=== PATIENT | male | born 1985 | race African-American/Black ===

== ENCOUNTER 2018-10-11 14:11 | Emergency (ER) | payer OTHER ==
[2018-10-11 14:39] VITALS: BP 172/96; PULSE 131; TEMP 102.6; BMI 33.9
[2018-10-11] MEDS ORDERED: ACETAMINOPHEN 500 MG TABLET (FP) PO ONE (14:47)
[2018-10-11] MEDS ORDERED: ACETAMINOPHEN 325 MG TABLET (FP) PO ONE (14:47)
[2018-10-11] MEDS ORDERED: ACETAMINOPHEN 325 MG TABLET (FP) ONE (14:51)
--- NOTE | 2018-10-11 14:54 | PDOC ---
Rapid Medical Evaluation Chief Complaint: Cold Symptoms Time Seen by Provider: 10/11/18 14:46 Medical Evaluation: Allergies Allergy/AdvReac Type Severity Reaction Status Date / Time No Known Allergies Allergy Verified 10/11/18 14:29 Vital Signs Temp Pulse Resp BP Pulse Ox 102.6 F H 131 H 18 172/96 H 100 10/11/18 14:30 10/11/18 14:30 10/11/18 14:30 10/11/18 14:30 10/11/18 14:30 10/11/18 14:53 I have performed a brief in-person evaluation of this patient. The patient presents with a chief complaint of: fever, chills, sore throat and nasal congestion since yesterday Pertinent physical exam findings: A&O x 3. heart RRR. lungs CTAB I have ordered the following: rapid strep, rapid flu. Tylenol 975mg PO The patient will proceed to the ED for further evaluation Discharge Disposition - Diagnosis Pharyngitis Qualifiers: Pharyngitis/tonsillitis etiology: unspecified etiology Qualified Code(s): J02.9 - Acute pharyngitis, unspecified - Discharge Dispostion Condition at time of disposition: Stable - Referrals - Patient Instructions - Post Discharge Activity
--- NOTE | 2018-10-11 14:58 | PDOC ---
History of Present Illness - General Chief Complaint: Cold Symptoms Stated Complaint: Cold Symptoms Time Seen by Provider: 10/11/18 14:46 - History of Present Illness Initial Comments: 10/11/18 14:56 33-year-old male without comorbidities presents for evaluation of fever sore throat and malaise times one day Past History - Past Medical History Allergies/Adverse Reactions: Allergies Allergy/AdvReac Type Severity Reaction Status Date / Time No Known Allergies Allergy Verified 10/11/18 14:29 Home Medications: Ambulatory Orders NK [No Known Home Medication] 10/11/18 COPD: No HTN: Yes - Surgical History Gastric Stapling: No - Immunization History Immunization Up to Date: No - Suicide/Smoking/Psychosocial Hx Smoking History: Former smoker Have you smoked in the past 12 months: No Information on smoking cessation initiated: No Hx Alcohol Use: No Drug/Substance Use Hx: No Review of Systems - Review of Systems Constitutional: Yes: Fever, Malaise HEENTM: Yes: Nose Congestion, Throat Pain Respiratory: Yes: Cough *Physical Exam - Vital Signs Last Vital Signs Temp Pulse Resp BP Pulse Ox 102.6 F H 131 H 18 172/96 H 100 10/11/18 14:30 10/11/18 14:30 10/11/18 14:30 10/11/18 14:30 10/11/18 14:30 - Physical Exam Comments: 10/11/18 14:57 HEAD: NC/AT EYES: Conjuntiva clear Ears: Canals and TM's normal NOSE: No d/c THROAT: Moist mucous membrances, oral pharanx erythemic, uvula midline NECK: Supple without adenopathy CARDIAC: S1 S2 LUNGS: CTA Full and Equal breath sounds ABDOMEN: Soft NT ND MS: Full ROM in all joints without edema NEUROLOGIC: No gross sensory or motor deficits, NVID SKIN: Normal color and temperature no lesions or rashes Moderate Sedation - Procedure Monitoring Vital Signs: Procedure Monitoring Vital Signs Temperature 102.6 F H 10/11/18 14:30 Pulse Rate 131 H 10/11/18 14:30 Respiratory Rate 18 10/11/18 14:30 Blood Pressure 172/96 H 10/11/18 14:30 O2 Sat by Pulse Oximetry (%) 100 10/11/18 14:30 ED Treatment Course - Medications Given in the ED: ED Medications Discontinued Medications Generic Name Dose Route Start Last Admin Trade Name Freq PRN Reason Stop Dose Admin Acetaminophen 1,000 mg 10/11/18 14:47 10/11/18 14:52 Tylenol - PO 10/11/18 14:48 Not Given ONCE ONE Acetaminophen 975 mg 10/11/18 14:47 10/11/18 14:52 Tylenol - PO 10/11/18 14:48 975 mg ONCE ONE Administration *DC/Admit/Observation/Transfer Diagnosis at time of Disposition: Upper respiratory infection Pharyngitis Qualifiers: Pharyngitis/tonsillitis etiology: unspecified etiology Qualified Code(s): J02.9 - Acute pharyngitis, unspecified - Discharge Dispostion Disposition: HOME Condition at time of disposition: Stable Decision to Admit order: No - Referrals Referrals: Sven Luu [Non Staff, Medical] - - Patient Instructions Printed Discharge Instructions: DI for Viral Upper Respiratory Infection -- Adult Additional Instructions: Flu and strep were negative today follow-up with your internal medicine doctor in one to 2 days for further evaluation and treatment options. Return to the emergency room should symptoms worsen or go unresolved. - Post Discharge Activity
== END 2018-10-11 16:25 | disposition home or self-care (01) ==
LOC: JERFT 14:11
DX: J06.9 Acute upper respiratory infection, unspecified (principal); J02.9 Acute pharyngitis, unspecified
CPT/HCPCS: 87070; 87804; 87880; 99281-25

== ENCOUNTER 2019-01-30 23:39 | Observation (INO) | payer OTHER ==
[2019-01-30 23:54] VITALS: BMI 34.8
--- NOTE | 2019-01-31 01:24 | PDOC ---
History of Present Illness - General Chief Complaint: Blood Pressure Problem Stated Complaint: HIGH BLOOD PRESURE Time Seen by Provider: 01/31/19 00:04 History Source: Patient Exam Limitations: No Limitations - History of Present Illness Initial Comments: 33 yo h/o HTN sent by urgent care on [address] in [place] to the ED for elevated BP with dizziness and chest tightness. Patient moved from [place] to [place] 2 years ago and has been getting his BP meds intermittently from urgent care centers due to no PMD and insurance. He's again been off his BP meds for months and today he's feeling dizzy and chest tightness which prompted him to go to the urgent care center. Denies vision change, focal weakness, n/v, abd pain, headache. Past History - Past Medical History Allergies/Adverse Reactions: Allergies Allergy/AdvReac Type Severity Reaction Status Date / Time No Known Allergies Allergy Verified 10/11/18 14:29 Home Medications: Ambulatory Orders Amlodipine Besylate [Norvasc -] 5 mg PO DAILY #30 tablet 01/31/19 Atorvastatin Ca [Lipitor] 20 mg PO HS #30 tablet 01/31/19 Lisinopril [Prinivil] 20 mg PO DAILY #30 tablet 01/31/19 COPD: No HTN: Yes - Surgical History Gastric Stapling: No - Immunization History Immunization Up to Date: No - Suicide/Smoking/Psychosocial Hx Smoking History: Never smoked Have you smoked in the past 12 months: No Information on smoking cessation initiated: No Hx Alcohol Use: No Drug/Substance Use Hx: No Review of Systems - Review of Systems Able to Perform ROS?: Yes Is the patient limited Yoruba proficient: No Constitutional: No: Chills, Fever Respiratory: No: Cough, Shortness of Breath Cardiac (ROS): Yes: Lightheadedness, Other (chest tightness) Neurological: No: Numbness, Paresthesia, Tingling, Tremors, Weakness *Physical Exam - Vital Signs Last Vital Signs Temp Pulse Resp BP Pulse Ox 98.0 F 109 H 19 163/110 H 99 01/31/19 01:15 01/31/19 01:15 01/31/19 01:15 01/31/19 01:15 01/31/19 01:15 - Physical Exam General Appearance: No: Apparent Distress Respiratory/Chest: positive: Lungs Clear, Normal Breath Sounds Cardiovascular: positive: S1, S2, Tachycardia. 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
--- NOTE | 2019-01-31 01:48 | PDOC ---
Attending Attestation - Resident Resident Name: Saad Sheridan (sore throat) - ED Attending Attestation I have performed the following: I have examined & evaluated the patient, The case was reviewed & discussed with the resident, I agree w/resident's findings & plan - HPI HPI: 01/31/19 03:04 33-year-old male sent for evaluation from urgent care with elevated blood pressure dizziness and chest pain. Patient admits to medication noncompliance. - Physicial Exam PE: 01/31/19 03:04 Agree with resident's exam - Medical Decision Making 01/31/19 03:05 33-year-old male with hypertension chest pain and dizziness Chest x-ray shows no acute disease EKG shows a normal sinus rhythm at 91 bpm with an incomplete right bundle branch block, there are no acute ST elevations Rhythm strip shows a sinus rhythm at 85-90 bpm Patient given aspirin nitroglycerin paste and Lopressor 5 mg IV On reevaluation at 3 AM he is chest pain-free Blood pressures are equal bilaterally and there is no extension of pain into his back to suggest aortic dissection He will will be admitted to observation telemetry service for serial enzymes and blood pressure monitoring
[2019-01-31] MEDS ORDERED: NITROGLYCERIN 2% OINTMENT - 1GM PACKET TD ONE ×2 (01:52→02:28)
[2019-01-31] MEDS ORDERED: METOPROLOL TARTRATE 5 MG/5 ML VIAL IVPUSH ONE (01:53)
[2019-01-31] MEDS ORDERED: METOPROLOL TARTRATE 5 MG/5 ML VIAL ONE (02:29)
[2019-01-31] MEDS ORDERED: ASPIRIN 81 MG CHEWABLE TABLETS PO ONE (02:30)
[2019-01-31] MEDS ORDERED: ASPIRIN COATED 81 MG TABLET.EC ONE (02:49)
[2019-01-31 03:26] LABS: BASO % 1.3 % (0-2.0); EOS % 3.4 % (0-4.5); HEMATOCRIT 45.3 % (35.4-49); MCH 20.8 pg (25.7-33.7); MCHC 30.9 g/dl (32.0-35.9); MEAN CELL VOLUME 67.4 fl (80-96); MEAN PLT VOLUME 9.2 fl (7.5-11.1); MONO % 6.6 % (3.8-10.2); NEUT % 56.7 % (42.8-82.8); PLATELET COUNT 251 K/MM3 (134-434); RBC 6.73 M/mm3 (4.00-5.60); RDW 14.2 % (11.9-15.9); WHITE BLOOD COUNT 12.9 K/mm3 (4.0-10.0)
[2019-01-31 03:34] LABS: HEMATOCRIT 46.2 % (35.4-49); HEMOGLOBIN 14.3 GM/dL (11.7-16.9); MCH 20.9 pg (25.7-33.7); MEAN CELL VOLUME 67.4 fl (80-96); MEAN PLT VOLUME 8.7 fl (7.5-11.1); PLATELET COUNT 277 K/MM3 (134-434); RBC 6.86 M/mm3 (4.00-5.60); RDW 14.4 % (11.9-15.9)
[2019-01-31 04:08] LABS: ALBUMIN 4.2 g/dl (3.4-5.0); ALK PHOS 128 U/L (45-117); ANION GAP 3 MMOL/L (8-16); BILIRUBIN,TOTAL 0.2 mg/dL (0.2-1); BLOOD UREA NITROGEN 20 mg/dL (7-18); CALCIUM 9.4 mg/dL (8.5-10.1); CHLORIDE 105 mmol/L (98-107); CO2 30 mmol/L (21-32); GLUCOSE,RANDOM 107 mg/dL (74-106); POTASSIUM 4.7 mmol/L (3.5-5.1); SGOT/AST 33 U/L (15-37); SGPT/ALT 61 U/L (13-61); SODIUM 139 mmol/L (136-145); TOT PROT 8.1 g/dl (6.4-8.2)
--- NOTE | 2019-01-31 04:34 | PN ---
Teaching Attending Note Name of Resident: Agus Arias ATTENDING PHYSICIAN STATEMENT I saw and evaluated the patient. I reviewed the resident's note and discussed the case with the resident. I agree with the resident's findings and plan as documented. SUBJECTIVE: Patient is a 33 year old man with PMH of HTN diagnosed 10 years ago, sent by Urgent Care on [facility] in [place] to the ER for elevated BP with dizziness and chest tightness. Chest tightness is intermittent, retrosternal/ epigastric, nonradiating, not associated with any other symptoms and he cannot identify any relieving or aggravating factors. Patient moved from [place] to [place] 2 years ago and has been getting his BP meds intermittently from urgent care centers due to no PMD and no health insurance. He's again been off his BP meds for months and today he's feeling dizzy and chest tightness which prompted him to go to the urgent care center. Denies vision change, fever, chills, focal weakness, nausea, vomiting, diaphoresis, SOB, dysuria, OSPINA or change in bowel habit. His pain has stopped since being in the ER, but he now has a frontal headache. He did not get workup for secondary hypertension 10 years ago. has gained weight recently because since relocating from [place] he has not had time to go to the GYM. 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 No family history of premature CAD. OBJECTIVE: Alert Vital Signs Period Temp Pulse Resp BP Sys/Holly Pulse Ox Last 24 Hr 98 F-98.0 F 88-109 16-20 141-196/101-120 98-100 HEENT: No Jaundice, eye redness or discharge, PERRLA, EOMI. No papilledema. Normocephalic, atraumatic. External ears are normal and hearing is grossly intact. No nasal discharge. Neck: Supple, nontender. No palpable adenopathy or thyromegaly. No JVD Chest: Good effort. Clear to auscultation and percussion. Heart: Regular. No S3, rub or murmur Abdomen: Not distended, soft, nontender and no HSM. No rebound or guarding. Normal bowel sounds. Ext: Peripheral pulses intact. No leg edema. Skin: Warm and dry. No petechiae, rash or ecchymosis. Neuro: Alert. Oriented x3. CN 2-12 grossly intact. Sensation grossly intact in all four extremities and DTR are symmetric. Psych: Appropriate mood and affect. Good insight. Home Medications Medication Instructions Recorded Amlodipine Besylate 10 mg PO DAILY #30 tablet 10/11/18 Telmisartan/Hydrochlorothiazid 1 each PO DAILY #30 tablet 10/11/18 [Micardis Hct 80-12.5 mg Tablet] Abnormal Lab Results 01/31/19 01/31/19 01/31/19 01:58 03:30 03:30 WBC 12.9 H 15.0 H RBC 6.73 H 6.86 H MCV 67.4 L 67.4 L MCH 20.8 L 20.9 L MCHC 30.9 L 31.0 L Anion Gap 3 L BUN 20 H Random Glucose 107 H Alkaline Phosphatase 128 H ASSESSMENT AND PLAN: 1. Chest pain and hypertensive urgency - He has risk factors for CAD. He got IV lopressor, NTG paste and full dose aspirin in the ER. His hypertension improved. His CXR shows mild cardiomegaly, no acute infiltrates. EKG is NSR with no significant ST-T wave changes, and initial troponin is negative. Will admit to telemetry to rule out ACS, get ECHO, fasting lipids and consult cardiology. Since he does not have health insurance, COST, should be a major factor in the choice of antihypertensive drugs for him. Will start him on Lisinopril 20 mg bid , HCTZ 12.5mg q am and possibly amlodipine 5 mg po q am. He has been told that he can get these medications at a reasonable mckeon at [facility] pharmacy. Nonpharmacologic measures to control hypertension like weight loss, salt restriction and exercise discussed. As an outpatient, it will be prudent to do workup for secondary hypertension since he developed hypertension at age 23 years. He has unexplained leukocytosis aand microcytosis. No obvious source of infection. Will get urinalysis and hemoglobin electrophoresis 2. Obesity Counseled on the risks associated with obesity. Will provide patient all the necessary assistance, counseling and positive reinforcement to facilitate weight loss. Consult financial analysis advisor. 3. Tobacco Use Counseled on risks associated with tobacco use. We will provide patient all the necessary assistance to facilitate smoking cessation and prescribe Nicotine patch. 4. DVT prophylaxis - Lovenox 40 mg SQ q 24 hours. 5. Advance directives - Full code
[2019-01-31 04:35] LABS: ANISOCYTOSIS 2+; MACROCYTOSIS 0; PLATELET ESTIMATE NORMAL
--- NOTE | 2019-01-31 05:52 | HP ---
CHIEF COMPLAINT: dizziness and chest tightness PCP: None HISTORY OF PRESENT ILLNESS: Pt. is a 33 y.o. M presenting from Urgent Care for blood pressure to 190s/100s. Pt. states that he was driving home from work when he noticed that he felt dizzy and chest tightness. He states that this is usually how he notices when his BP is elevated. Pt. then measured his BP at home and found it to be 206/130s so he went to Urgent care and was sent to the hospital from there. Pt. denies compliance with his medications. He states that over the last month he has taken his medications twice. Pt. states he had been having insurance issue and had to fly back to [place] to visit his doctor there to get new medications. Pt. states he was compliant with his medications for 8 years however over the last 2 years he has not. Pt. states that he used to take medications for high cholesterol but over that he completed the course as his cholesterol went back to normal. Pt. denies headache, blurry vision, changes in balance, dizziness, shortness of breath, palpitations, changes in bowel or urinary habits, leg swelling or any other complaints at this time. ER course was notable for: (1)EKG, labs (2)ASA 325mg, Lopressor 5mg, Nitroglycerin (3) Recent Travel: No PAST MEDICAL HISTORY: HTN, HLD PAST SURGICAL HISTORY: Eye Surgery (3 years ago) Social History: Smokin Cigs/ day for over 5 years Alcohol: 3 beers/ week Drugs: Denies Family History: Denies Allergies No Known Allergies Allergy (Verified 10/11/18 14:29) HOME MEDICATIONS: Home Medications Medication Instructions Recorded Amlodipine Besylate 10 mg PO DAILY #30 tablet 10/11/18 Telmisartan/Hydrochlorothiazid 1 each PO DAILY #30 tablet 10/11/18 [Micardis Hct 80-12.5 mg Tablet] REVIEW OF SYSTEMS As per HPI PHYSICAL EXAMINATION Vital Signs - 24 hr 01/30/19 01/31/19 01/31/19 23:50 01:15 02:35 Temperature 98 F 98.0 F Pulse Rate 100 H Pulse Rate [ 109 H Left Apical] Pulse Rate [ Right Apical] Respiratory 20 19 Rate Blood Pressure 196/120 H 161/110 H Blood Pressure [Left Arm] Blood Pressure 163/110 H [Right Arm] O2 Sat by Pulse 100 99 Oximetry (%) 01/31/19 03:02 Temperature Pulse Rate Pulse Rate [ 88 Left Apical] Pulse Rate [ 89 Right Apical] Respiratory 16 Rate Blood Pressure Blood Pressure 141/110 H [Left Arm] Blood Pressure 147/101 H [Right Arm] O2 Sat by Pulse 98 Oximetry (%) GENERAL: Awake, alert, and fully oriented, in no acute distress. HEAD: Normal with no signs of trauma. EYES: Pupils equal, round and reactive to light, extraocular movements intact, sclera anicteric, conjunctiva clear. EARS, NOSE, THROAT: Ears normal, nares patent, oropharynx clear without exudates. Moist mucous membranes. NECK: Normal range of motion, supple without lymphadenopathy, JVD, or masses. LUNGS: Breath sounds equal, clear to auscultation bilaterally. No wheezes, and no crackles. No accessory muscle use. HEART: Regular rate and rhythm, normal S1 and S2 without murmur, rub or gallop. ABDOMEN: Soft, nontender, not distended, normoactive bowel sounds, no guarding, no rebound, no masses. No hepatomegaly or splenomegaly. MUSCULOSKELETAL: Normal range of motion at all joints. No bony deformities or tenderness. No CVA tenderness. UPPER EXTREMITIES: 2+ radial pulses, warm, well-perfused. No cyanosis. No clubbing. No peripheral edema. LOWER EXTREMITIES: warm, well-perfused. No calf tenderness. No peripheral edema. NEUROLOGICAL: Normal speech. PSYCHIATRIC: Cooperative. Good eye contact. Appropriate mood and affect. SKIN: Warm, dry, normal turgor, no rashes or lesions noted, normal capillary refill. Laboratory Results - last 24 hr 01/31/19 01/31/19 01/31/19 01:58 01:58 03:30 WBC 12.9 H 15.0 H RBC 6.73 H 6.86 H Hgb 14.0 14.3 Hct 45.3 46.2 MCV 67.4 L 67.4 L MCH 20.8 L 20.9 L MCHC 30.9 L 31.0 L RDW 14.2 14.4 Plt Count 251 277 MPV 9.2 8.7 Absolute Neuts (auto) 7.3 Neutrophils % 56.7 Lymphocytes % 32.0 Monocytes % 6.6 Eosinophils % 3.4 Basophils % 1.3 Nucleated RBC % 0 Hypochromia 1+ Platelet Estimate Normal Polychromasia 0 Poikilocytosis 0 Anisocytosis 2+ Microcytosis 2+ Macrocytosis 0 Sodium Cancelled Potassium Cancelled Chloride Cancelled Carbon Dioxide Cancelled Anion Gap Cancelled BUN Cancelled Creatinine Cancelled Creat Clearance w eGFR Cancelled Random Glucose Cancelled Calcium Cancelled Magnesium Cancelled Total Bilirubin Cancelled AST Cancelled ALT Cancelled Alkaline Phosphatase Cancelled Creatine Kinase Cancelled Troponin I Cancelled Total Protein Cancelled Albumin Cancelled 01/31/19 01/31/19 03:30 03:30 WBC RBC Hgb Hct MCV MCH MCHC RDW Plt Count MPV Absolute Neuts (auto) Neutrophils % Lymphocytes % Monocytes % Eosinophils % Basophils % Nucleated RBC % Hypochromia Platelet Estimate Polychromasia Poikilocytosis Anisocytosis Microcytosis Macrocytosis Sodium 139 Potassium 4.7 Chloride 105 Carbon Dioxide 30 Anion Gap 3 L BUN 20 H Creatinine 1.0 Creat Clearance w eGFR 85.03 Random Glucose 107 H Calcium 9.4 Magnesium Total Bilirubin 0.2 AST 33 ALT 61 Alkaline Phosphatase 128 H Creatine Kinase Troponin I < 0.02 Total Protein 8.1 Albumin 4.2 ASSESSMENT/PLAN: Pt. is a 33 y.o. M w/ PMHx. of HTN and HLD presents from Urgent Care for blood pressure to 190s/100s. #Hypertensive Urgency vs. 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 on diet (decrease salt, processed sugar and fat intake) and exercise modifications #Elevated fasting Blood glucose f/u A1c fasting glucose 107 #HLD f/u fasting lipid panel consider starting statin based on ASCVD risk calculation with results #Microcytosis MCV:67.4, however Hgb is 14.3 trend #Leukocytosis elevated WBC to 15k afebrile no source of infection #FEN encourage PO intake monitor, replete as needed Na restricted diet after lipid panel drawn #DVT Ppx. Early Ambulation Visit type - Emergency Visit Emergency Visit: Yes ED Registration Date: 01/31/19 Care time: The patient presented to the Emergency Department on the above date and was hospitalized for further evaluation of their emergent condition. - New Patient This patient is new to me today: Yes Date on this admission: 01/31/19 - Critical Care Critical Care patient: No
[2019-01-31] MEDS ORDERED: amLODIPine BESYLATE 5 MG TABLET (FP) PO SCH ×2 (06:04→10:00)
[2019-01-31 08:23] LABS: CHOLESTEROL 215 mg/dL (50-200); HDL CHOLESTEROL 33 mg/dL (40-60); TRIGLYCERIDES 187 mg/dL (0-150)
[2019-01-31] MEDS ORDERED: HYDROCHLOROTHIAZIDE 12.5 MG CAPSULE (FP) PO SCH (10:00)
[2019-01-31] MEDS ORDERED: LISINOPRIL 20 MG TABLET (FP) PO SCH (10:00)
[2019-01-31] MEDS ORDERED: LISINOPRIL 20 MG TABLET (FP) ONE (11:56)
[2019-01-31] MEDS ORDERED: HYDROCHLOROTHIAZIDE 25 MG TABLET (FP) ONE (11:56)
[2019-01-31] MEDS ORDERED: amLODIPine BESYLATE 5 MG TABLET (FP) ONE (11:56)
--- NOTE | 2019-01-31 13:52 | ECHO ---
Version: 1 Name: KARAN CATALAN Exam: Adult Echocardiogram Study Date: 01/31/2019, 12:08 PM Age: 33 Years MMode/2D Measurements & Calculations IVSd: 1.00 cm LVIDs: 3.3 cm LVIDd: 4.8 cm LVPWd: 0.98 cm LVOT diam: 2.13 cm Ao root diam: 2.6 cm LA dimension: 3.7 cm Doppler Measurements & Calculations Lat Peak E' Lane: 8.7 cm/sec Med Peak E' Lane: 5.2 cm/sec Ao max P.9 mmHg HARRIETT(I,D): 3.0 cm Ao mean P.8 mmHg LV V1 mean: 67.7 cm/sec Ao V2 max: 111.0 cm/sec LV V1 mean P.29 mmHg Left Ventricle The left ventricular size, thickness and function are normal. Right Ventricle The right ventricle is normal in size and function. Atria Normal left and right atrial size and function. Mitral Valve The mitral valve is normal in structure and function. Tricuspid Valve The tricuspid valve is normal in structure and function. Aortic Valve Fibrocalcific changes of the aortic valve without stenosis. Pulmonic Valve The pulmonic valve is not well seen, but is grossly normal. Great Vessels The aortic root is normal size. Pericardium/Pleura There is no pleural effusion. Summary Statements The left ventricular size, thickness and function are normal. The right ventricle is normal in size and function. Normal left and right atrial size and function. The mitral valve is normal in structure and function. The tricuspid valve is normal in structure and function. The pulmonic valve is not well seen, but is grossly normal. The aortic root is normal size. Estimated EF 65%. MD Gigi Solano 01/31/2019, 12:51 PM Ordering Physician: WALLY WHALEN Referring Physician: BRIAN CALDWELL Performed By: Lizbet Link
--- NOTE | 2019-01-31 14:25 | DS ---
Physical Exam: SUBJECTIVE: Patient seen and examined at bedside. Asymptomatic at time of interview. OBJECTIVE: Vital Signs Period Temp Pulse Resp BP Sys/Holly Pulse Ox Last 24 Hr 97.9 F-98.4 F 76-109 16-20 123-196/70-120 94-100 PHYSICAL EXAM GENERAL: A&Ox3, NAD HEENT: NC/AT, PERRLA, EOMI, MMM NECK: Trachea midline, full range of motion, supple. LUNGS: CTA b/l HEART: RRR no m/r/g ABDOMEN: +bs, soft, NT, ND EXTREMITIES: 2+ pulses, warm, well-perfused, no edema. 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 SKIN: Warm, dry, normal turgor, no rashes or lesions noted LABS Laboratory Results - last 24 hr 01/31/19 01/31/19 01/31/19 01:58 01:58 03:30 WBC 12.9 H 15.0 H RBC 6.73 H 6.86 H Hgb 14.0 14.3 Hct 45.3 46.2 MCV 67.4 L 67.4 L MCH 20.8 L 20.9 L MCHC 30.9 L 31.0 L RDW 14.2 14.4 Plt Count 251 277 MPV 9.2 8.7 Absolute Neuts (auto) 7.3 Neutrophils % 56.7 Lymphocytes % 32.0 Monocytes % 6.6 Eosinophils % 3.4 Basophils % 1.3 Nucleated RBC % 0 Hypochromia 1+ Platelet Estimate Normal Polychromasia 0 Poikilocytosis 0 Anisocytosis 2+ Microcytosis 2+ Macrocytosis 0 Sodium Cancelled Potassium Cancelled Chloride Cancelled Carbon Dioxide Cancelled Anion Gap Cancelled BUN Cancelled Creatinine Cancelled Creat Clearance w eGFR Cancelled Random Glucose Cancelled Hemoglobin A1c % Calcium Cancelled Magnesium Cancelled Total Bilirubin Cancelled AST Cancelled ALT Cancelled Alkaline Phosphatase Cancelled Creatine Kinase Cancelled Troponin I Cancelled Total Protein Cancelled Albumin Cancelled Triglycerides Cholesterol Total LDL Cholesterol HDL Cholesterol 01/31/19 01/31/19 01/31/19 03:30 03:30 07:35 WBC RBC Hgb Hct MCV MCH MCHC RDW Plt Count MPV Absolute Neuts (auto) Neutrophils % Lymphocytes % Monocytes % Eosinophils % Basophils % Nucleated RBC % Hypochromia Platelet Estimate Polychromasia Poikilocytosis Anisocytosis Microcytosis Macrocytosis Sodium 139 Potassium 4.7 Chloride 105 Carbon Dioxide 30 Anion Gap 3 L BUN 20 H Creatinine 1.0 Creat Clearance w eGFR 85.03 Random Glucose 107 H Hemoglobin A1c % Calcium 9.4 Magnesium Total Bilirubin 0.2 AST 33 ALT 61 Alkaline Phosphatase 128 H Creatine Kinase Troponin I < 0.02 < 0.02 Total Protein 8.1 Albumin 4.2 Triglycerides 187 H Cholesterol 215 H Total LDL Cholesterol 154 H HDL Cholesterol 33 L 01/31/19 01/31/19 07:35 09:21 WBC RBC Hgb Hct MCV MCH MCHC RDW Plt Count MPV Absolute Neuts (auto) Neutrophils % Lymphocytes % Monocytes % Eosinophils % Basophils % Nucleated RBC % Hypochromia Platelet Estimate Polychromasia Poikilocytosis Anisocytosis Microcytosis Macrocytosis Sodium Potassium Chloride Carbon Dioxide Anion Gap BUN Creatinine Creat Clearance w eGFR Random Glucose Hemoglobin A1c % 5.8 Calcium Magnesium Total Bilirubin AST ALT Alkaline Phosphatase Creatine Kinase Troponin I < 0.02 Total Protein Albumin Triglycerides Cholesterol Total LDL Cholesterol HDL Cholesterol HOSPITAL COURSE: Date of Admission:01/31/19 Patient is a 33 y/o M w/ PMHx HTN, HLD, p/w chest tightness and dizziness. Blood pressure measured at home was reportedly 206/130, BP at urgent care was 190s/100s; from there he was sent to ED where initial BP was 196/120. Pt admitted for hypertensive urgency. BP was normalized with Lopressor and NTG, Pt was then initiated on Lisinopril, Norvasc, and HCTZ. EKG was benign, troponins negative, echocardiogram normal throughout. Lipid studies were significant for marked total cholesterol and LDL elevations. Patient was discharged on multiple anti-hypertensives and a statin and referred for followup to the primary care clinic. Date of Discharge: 01/31/19 Minutes to complete discharge: 40 Discharge Summary Reason For Visit: CHEST PAIN Condition: Stable - Instructions Diet, Activity, Other Instructions: You were hospitalized for very high blood pressure. Your blood pressure was brought under control with medication. Your echocardiogram (ultrasound of your heart) was entirely normal. You were also found to have very high cholesterol requiring control with medication. Prescriptions have been sent on your behalf to [facility] for three medications: Lisinopril and Norvasc to be taken daily for control of blood pressure, and Lipitor to be taken nightly for control of cholesterol. Additionally, a referral has been made on your behalf for follow up with our primary medical care clinic. Please keep this appointment within one week of your discharge. If you experience any new or concerning symptoms such as chest pain or discomfort, shortness of breath, severe headache, changes in vision, fever, chills, or any other new or concerning symptoms, please return to the Emergency Department. [place]errals: [facility] [place] [facility] [place] Group] Disposition: HOME - Home Medications Comprehensive Discharge Medication List: Ambulatory Orders Amlodipine Besylate [Norvasc -] 5 mg PO DAILY #30 tablet 01/31/19 Atorvastatin Ca [Lipitor] 20 mg PO HS #30 tablet 01/31/19 Lisinopril [Prinivil] 20 mg PO DAILY #30 tablet 01/31/19 This patient is new to me today: Yes Date on this admission: 01/31/19 Emergency Visit: Yes ED Registration Date: 01/31/19 Care time: The patient presented to the Emergency Department on the above date and was hospitalized for further evaluation of their emergent condition. Critical Care patient: No - Discharge Referral Referred to [facility] No
--- NOTE | 2019-01-31 14:42 | EKG ---
Test Reason : Blood Pressure : / mmHG Vent. Rate : 091 BPM Atrial Rate : 091 BPM P-R Int : 140 ms QRS Dur : 100 ms QT Int : 366 ms P-R-T Axes : 042 -14 037 degrees QTc Int : 450 ms NORMAL SINUS RHYTHM POSSIBLE LEFT ATRIAL ENLARGEMENT INCOMPLETE RIGHT BUNDLE BRANCH BLOCK BORDERLINE ECG NO PREVIOUS ECGS AVAILABLE Confirmed by Brice Soto ([id number]) on 01/31/2019 2:41:40 PM Referred By: Confirmed By:Brice Soto
[2019-01-31 16:02] VITALS: BP 151/100; PULSE 72; TEMP 97.6
[2019-01-31] MEDS ORDERED: ATORVASTATIN CA 20 MG TABLET (FP) PO SCH (22:00)
== END 2019-01-31 16:00 | disposition home or self-care (01) ==
LOC: JER 23:39 → JERBED 01-31 03:39
PROVIDERS: ADMIT Internal Medicine; ATTEND Internal Medicine
PROC: 3E033GC Introduction of Other Therapeutic Substance into Peripheral Vein, Percutaneous Approach (ICD-10-PCS; principal; 2019-01-31)
DX: I16.0 Hypertensive urgency (principal); R07.89 Other chest pain; F17.210 Nicotine dependence, cigarettes, uncomplicated; E66.9 Obesity, unspecified; Z68.34 Body mass index [BMI] 34.0-34.9, adult; R73.9 Hyperglycemia, unspecified; E78.5 Hyperlipidemia, unspecified; D50.9 Iron deficiency anemia, unspecified; D72.829 Elevated white blood cell count, unspecified
CPT/HCPCS: 36415; 71046-TC-FY; 80053; 80061; 83036; 83721; 84484; 85025; 85027; 93005; 93010; 93306-TC; 99283-25; G0378

== ENCOUNTER 2023-11-21 16:38 | Emergency (ER) | payer OTHER ==
[2023-11-21 16:50] VITALS: BP 151/96; PULSE 92; RESP 18; TEMP 97.8; BMI 34.9
[2023-11-21] MEDS ORDERED: IBUPROFEN 600 MG TABLET (FP) PO ONE ×2 (17:30→17:51)
[2023-11-21 18:59] LABS: BASO % 1.1 % (0-2.0); EOS % 6.1 % (0-4.5); HEMATOCRIT 44.3 % (35.4-49); HEMOGLOBIN 13.6 GM/dL (11.7-16.9); MCH 20.4 pg (25.7-33.7); MCHC 30.6 g/dl (32.0-35.9); MEAN CELL VOLUME 66.5 fl (80-96); MEAN PLT VOLUME 8.4 fl (7.5-11.1); MONO % 9.7 % (3.8-10.2); NEUT % 62.1 % (42.8-82.8); PLATELET COUNT 283 10^3/uL (134-434); RBC 6.66 M/mm3 (4.00-5.60); RDW 13.9 % (11.9-15.9); WHITE BLOOD COUNT 12.5 K/mm3 (4.0-10.0)
[2023-11-21 19:26] LABS: POTASSIUM 3.9 mmol/L (3.5-5.1)
[2023-11-21 19:27] LABS: CALCIUM 9.3 mg/dL (8.5-10.1)
[2023-11-21 19:28] LABS: ALBUMIN 3.9 g/dl (3.4-5.0); BLOOD UREA NITROGEN 19.5 mg/dL (7-18)
[2023-11-21 19:31] LABS: CREATININE 1.2 mg/dL (0.55-1.3)
[2023-11-21 19:33] LABS: BILIRUBIN,TOTAL 0.4 mg/dL (0.2-1); TOT PROT 7.8 g/dl (6.4-8.2)
[2023-11-21 20:14] LABS: ANISOCYTOSIS 3+; MACROCYTOSIS 0
== END 2023-11-21 23:09 | disposition home or self-care (01) ==
LOC: JERFT 16:38
DX: M79.671 Pain in right foot (principal); L03.115 Cellulitis of right lower limb; R74.01 Elevation of levels of liver transaminase levels
CPT/HCPCS: 36415; 73630-TC-RT-FY; 75635-TC; 80053; 85025; 99285-25; Q9967